=== PATIENT | female | born 1990 | race Caucasian/White ===

== ENCOUNTER → 2016-09-14 | Outpatient (CLI) | payer BC, OTHER ==
--- NOTE | 2016-09-14 11:19 | DIAGNOSTIC IMAGING REPORT ---
HYSTEROSALPINGOGRAM CLINICAL HISTORY: INFERTILITY COMPARISON STUDY: No previous studies for comparison. Fluoroscopy time: 0.5 minutes. TECHNIQUE: A hysterosalpingogram was performed by Dr. Germain. The cervix was cannulated and 50 cc of Optiray 300 was injected. 4 fluoroscopic images were obtained. FINDINGS: Uterine morphology is normal. Free spillage was noted from both fallopian tubes. There was immediate spillage from the right fallopian tube with delayed spillage from left fallopian tube. IMPRESSION: Patent bilateral fallopian tubes. Electronically signed by: Alexandre Montiel M.D. 09/14/2016 11:17 AM Dictated Date/Time: 09/14/2016 11:16 AM
--- NOTE | 2016-09-14 18:29 | OPERATIVE REPORT ---
DATE OF OPERATION: 09/14/2016 PREOPERATIVE DIAGNOSIS: Infertility. POSTOPERATIVE DIAGNOSIS: Infertility. PROCEDURE: Hysterosalpingogram. SURGEON: Dr. Germain. RADIOLOGY: Dr. Strauss. FINDINGS: Normal spill of dye from both tubes. DESCRIPTION OF PROCEDURE: Reviewed the procedure with Coni, risks and benefits. The procedure was done under sterile conditions. Speculum was used to visualize the cervix and grasped with a single tooth tenaculum, the cervix. The acorn device was attached to the cervix and then the patient was positioned, radiopaque dye was injected and there was good spill of dye from both left and right fallopian tubes. At the procedure, the patient tolerated the procedure well. Instruments removed from the cervix and vagina and bleeding was minimal afterwards. I attest to the content of the Intraoperative Record and any orders documented therein. Any exception s are noted below.
== END | disposition home or self-care (01) ==
LOC: C.RAD 10:08
PROVIDERS: ATTEND Obstetrics & Gynecology
DX: Z31.41 Encounter for fertility testing (principal)

== ENCOUNTER → 2017-02-23 | Outpatient (CLI) | payer BC, OTHER ==
[2017-02-23 10:14] LABS: FOLLICLE STIMULAT HORMONE 3.88 IU/L; LUTEINIZING HORMONE 4.55 IU/L
== END | disposition home or self-care (01) ==
LOC: C.LAB 08:59
PROVIDERS: ATTEND Obstetrics & Gynecology Reproductive Endocrinology
DX: O09.00 Supervision of pregnancy with history of infertility, unspecified trimester (principal); Z3A.00 Weeks of gestation of pregnancy not specified

== ENCOUNTER → 2017-03-02 | Outpatient (CLI) | payer BC, OTHER ==
[2017-03-02 09:45] LABS: LUTEINIZING HORMONE 9.9 IU/L
--- NOTE | 2017-03-07 10:17 | CODING QUERY NO DIAGNOSIS ---
: 1990 TREATMENT RENDERED WITHOUT A DIAGNOSIS To promote full compliance with coding requirements relating to patient care, physician participation is requested in all cases of rail car driver uncertainty. Please assist us with providing a diagnosis/symptom for the test(s) below: A diagnosis/symptom was not documented on your order. A valid diagnosis/symptom is required to bill all insurances. Please remember that we are unable to code a diagnosis of rule out, probable, possible, questionable, or suspected. Tests that require a diagnosis: Date of Service: 03/02/17 * Estradiol DIAGNOSIS: * DIAGNOSIS: Provider Signature: Date: Thank you Sandra Wilson Health Information Management Once completed, please kindly fax back to [phone] For questions please call [phone]
== END | disposition home or self-care (01) ==
LOC: C.LAB 08:27
PROVIDERS: ATTEND Obstetrics & Gynecology Reproductive Endocrinology
DX: Z31.41 Encounter for fertility testing (principal)

== ENCOUNTER → 2017-03-05 | Outpatient (CLI) | payer BC, OTHER ==
[2017-03-05 10:20] LABS: LUTEINIZING HORMONE 11.59 IU/L
== END | disposition home or self-care (01) ==
LOC: C.LAB 09:20
PROVIDERS: ATTEND Obstetrics & Gynecology Reproductive Endocrinology
DX: Z01.89 Encounter for other specified special examinations (principal)

== ENCOUNTER → 2017-03-08 | Outpatient (CLI) | payer BC, OTHER ==
[2017-03-08 11:24] LABS: LUTEINIZING HORMONE 11.59 IU/L
== END | disposition home or self-care (01) ==
LOC: C.LAB 10:19
PROVIDERS: ATTEND Obstetrics & Gynecology Reproductive Endocrinology
DX: Z31.41 Encounter for fertility testing (principal)

== ENCOUNTER → 2017-03-13 | Outpatient (CLI) | payer BC, OTHER ==
[2017-03-13 09:55] LABS: LUTEINIZING HORMONE 9.52 IU/L
== END | disposition home or self-care (01) ==
LOC: C.LAB 08:57
PROVIDERS: ATTEND Obstetrics & Gynecology Reproductive Endocrinology
DX: Z31.41 Encounter for fertility testing (principal)

== ENCOUNTER → 2017-03-16 | Outpatient (CLI) | payer BC, OTHER ==
[2017-03-16 12:18] LABS: LUTEINIZING HORMONE 8.22 IU/L
== END | disposition home or self-care (01) ==
LOC: C.LAB 11:29
PROVIDERS: ATTEND Obstetrics & Gynecology Reproductive Endocrinology
DX: Z31.41 Encounter for fertility testing (principal)

== ENCOUNTER → 2017-03-21 | Outpatient (CLI) | payer BC, OTHER ==
[2017-03-21 13:13] LABS: LUTEINIZING HORMONE 8.32 IU/L
== END | disposition home or self-care (01) ==
LOC: C.LAB 10:57
PROVIDERS: ATTEND Obstetrics & Gynecology Reproductive Endocrinology
DX: Z31.41 Encounter for fertility testing (principal)

== ENCOUNTER → 2017-03-23 | Outpatient (CLI) | payer BC, OTHER ==
[2017-03-23 11:05] LABS: LUTEINIZING HORMONE 7.03 IU/L
== END | disposition home or self-care (01) ==
LOC: C.LAB 10:06
DX: Z31.41 Encounter for fertility testing (principal)

== ENCOUNTER → 2017-03-26 | Outpatient (CLI) | payer BC, OTHER ==
[2017-03-26 12:32] LABS: LUTEINIZING HORMONE 5.39 IU/L
== END | disposition home or self-care (01) ==
LOC: C.LAB 10:27
PROVIDERS: ATTEND Obstetrics & Gynecology Reproductive Endocrinology
DX: Z31.41 Encounter for fertility testing (principal)

== ENCOUNTER → 2017-03-28 | Outpatient (CLI) | payer BC, OTHER ==
[2017-03-28 10:19] LABS: LUTEINIZING HORMONE 7.12 IU/L
== END | disposition home or self-care (01) ==
LOC: C.LAB 09:08
PROVIDERS: ATTEND Obstetrics & Gynecology Reproductive Endocrinology
DX: Z31.41 Encounter for fertility testing (principal)